=== PATIENT | male | born 1940 | race African-American/Black ===

== ENCOUNTER 2016-07-01 19:04 | Inpatient (IN) | payer MEDICARE ==
[~2016-07-01] VITALS: Ht 185.4 cm; Wt 78.6 kg
[~2016-07-01 19:04] MED LIST: AMLO2.5T45 PO; CARI350T27 PO; CARV6.2548 PO; HYDR-523 PO; LISI40TA4 PO; OMEP20TA80 PO; SIMV10TA6 PO; TRAM50TA3 PO
[2016-07-01 20:00] VITALS: BP 147/84
[2016-07-01] MEDS ORDERED: HYDROCODONE/ACETAMINOPHEN 5/325MG TABLET PO PRN ×3 (20:30→21:45)
[2016-07-01] MEDS ORDERED: ACET-2178 PO (21:24)
[2016-07-01] MEDS ORDERED: COR25 PO (21:24)
[2016-07-01] MEDS ORDERED: PULM25 NEB (21:24)
[2016-07-01] MEDS ORDERED: LOV40 SQ (21:24)
[2016-07-01] MEDS ORDERED: CARI350T27 PO (21:24)
[2016-07-01] MEDS ORDERED: LISI-653 PO (21:24)
[2016-07-01] MEDS ORDERED: AMLO5TAB4 PO (21:24)
[2016-07-01] MEDS ORDERED: DIPH25CA83 IV (21:24)
[2016-07-01] MEDS ORDERED: HYDR-523 PO (21:24)
[2016-07-01] MEDS ORDERED: AMLODIPINE 2.5MG TABLET PO SCH (21:30)
[2016-07-01] MEDS ORDERED: CARISOPRODOL 350 MG TABLET PO SCH ×2 (21:30→21:42)
[2016-07-01] MEDS ORDERED: DIPHENHYDRAMINE 25MG CAPSULE PO PRN (21:30)
[2016-07-01] MEDS ORDERED: HYDROCODONE/ACETAMINOPHEN 5/325MG TABLET PO SCH (21:30)
[2016-07-01] MEDS ORDERED: AMLODIPINE 5MG TABLET PO SCH (21:37)
[2016-07-01] MEDS ORDERED: ACETAMINOPHEN 650MG SUPP PR PRN (21:45)
[2016-07-01] MEDS ORDERED: NA PHOS,M-B/NA PHOS,DI-BA ENEMA 118ML PR PRN (21:45)
[2016-07-01] MEDS ORDERED: ACETAMINOPHEN 325MG TABLET PO PRN (21:45)
[2016-07-01] MEDS ORDERED: IPRATROPIUM/ALBUTEROL 0.5-3(2.5)MG/3ML NEB INH PRN (21:45)
[2016-07-01] MEDS ORDERED: ACETAMINOPHEN 650MG/20.3ML UDC GT PRN (21:45)
[2016-07-01] MEDS ORDERED: CLONIDINE 0.1MG TABLET PO PRN (21:45)
[2016-07-01] MEDS ORDERED: DIPHENHYDRAMINE 50MG/ML VIAL IV PRN (21:45)
[2016-07-01] MEDS ORDERED: DOCUSATE SODIUM 100MG CAPSULE PO PRN (21:45)
[2016-07-01] MEDS ORDERED: MAGNESIUM/ALUMINUM HYDROXIDE/SIMETHICONE 30ML UDC PO PRN (21:45)
[2016-07-01] MEDS ORDERED: ONDANSETRON HCL 4MG/2ML VIAL IV PRN (21:45)
[2016-07-01] MEDS: SODIUM CHLORIDE 0.9% INJ 3ML FLUSH IVF SCH (22:02)
[2016-07-02] MEDS: CEFAZOLIN 1000MG PREMIX 50 ML IV SCH ×5 (01:59→23:30)
[2016-07-02] MEDS: SODIUM CHLORIDE 0.9% INJ 3ML FLUSH IVF SCH ×4 (06:00→23:24)
[2016-07-02 08:00] VITALS: BP 131/89
[2016-07-02 08:28] LABS: BASOPHILS % 0.1 % (0.0-2.0); EOSINOPHILS % 0.3 % (0.0-5.0); HEMATOCRIT. 38.5 % (42.0-52.0); LYMPHOCYTES % 22.7 % (20.0-50.0); MEAN CORPUSCULAR HEMOGLOBIN 31.5 pg (28.0-32.0); MEAN CORPUSCULAR HGB CONC 33.6 g/dL (31.0-37.0); MEAN CORPUSCULAR VOLUME 93.8 fL (80.0-94.0); MONOCYTES % 10.5 % (2.0-8.0); NEUTROPHILS % 66.4 % (40.0-76.0); PLATELET 211 x1000/uL (130-400); RED BLOOD CELL COUNT 4.11 mill/uL (4.7-6.1); RED CELL DISTRIBUTION WIDTH 14.5 % (11.6-14.6); WHITE BLOOD COUNT 5.9 x1000/uL (4.5-11.0)
[2016-07-02 08:32] LABS: ALANINE AMINOTRANSFERASE 33 IU/L (13-61); ALBUMIN 3.2 g/dL (3.4-5.0); ANION GAP 11; CALCIUM 8.8 mg/dL (8.5-10.1); CARBON DIOXIDE 31 mEq/L (21-32); CHLORIDE 100 mEq/L (98-107); INDEX HEMOLYSI 1 (1-3); INDEX ICTERIC 1 (1-4); INDEX LIPEMIC 1 (1-3); PREALBUMIN 23.2 mg/dL (20.0-40.0); UREA NITROGEN BLOOD 19 mg/dL (7-21); eGFR > 60 mL/min (>60)
[2016-07-02] MEDS ORDERED: ENOXAPARIN 40MG/0.4ML SYR SUBCUT SCH (09:00)
[2016-07-02] MEDS ORDERED: CARVEDILOL 25MG TABLET PO SCH (09:00)
[2016-07-02] MEDS ORDERED: LISINOPRIL 40MG TABLET PO SCH (09:00)
[2016-07-02] MEDS ORDERED: LACTULOSE 20G/30ML UDC PO SCH (10:00)
[2016-07-02] MEDS: DOCUSATE SODIUM 100MG CAPSULE PO SCH ×2 (10:54→17:00)
[2016-07-02] MEDS: CARVEDILOL 25MG TABLET PO SCH ×2 (10:55→18:04)
[2016-07-02] MEDS: LISINOPRIL 40MG TABLET PO SCH ×2 (10:56→21:00)
[2016-07-02] MEDS: AMLODIPINE 5MG TABLET PO SCH ×2 (11:03→21:00)
[2016-07-02] MEDS: BUDESONIDE 0.5MG/2ML NEB HHN SCH ×2 (14:49→21:30)
[2016-07-02] MEDS: IPRATROPIUM/ALBUTEROL 0.5-3(2.5)MG/3ML NEB HHN SCH ×2 (14:49→21:22)
[2016-07-02] MEDS: TRAMADOL 50MG TABLET PO PRN (19:40)
[2016-07-02 19:46] VITALS: BP 106/64
[2016-07-02] MEDS: POLYETHYLENE GLYCOL 3350 (17GM) 1 DOSE PACK PO SCH (20:39)
[2016-07-03] MEDS: TRAMADOL 50MG TABLET PO PRN (03:49)
[2016-07-03] MEDS: SODIUM CHLORIDE 0.9% INJ 3ML FLUSH IVF SCH ×3 (06:00→22:53)
[2016-07-03] MEDS: CEFAZOLIN 1000MG PREMIX 50 ML IV SCH ×3 (06:33→22:49)
[2016-07-03 07:47] LABS: BASOPHILS % 0.2 % (0.0-2.0); EOSINOPHILS % 1.4 % (0.0-5.0); HEMATOCRIT. 37.5 % (42.0-52.0); HEMOGLOBIN. 12.9 g/dL (14.0-18.0); MEAN CORPUSCULAR HEMOGLOBIN 32.3 pg (28.0-32.0); MEAN CORPUSCULAR HGB CONC 34.4 g/dL (31.0-37.0); MEAN CORPUSCULAR VOLUME 93.9 fL (80.0-94.0); MEAN PLATELET VOLUME 6.8 fl (7.4-10.4); MONOCYTES % 9.7 % (2.0-8.0); NEUTROPHILS % 70.7 % (40.0-76.0); PLATELET 198 x1000/uL (130-400); RED BLOOD CELL COUNT 3.99 mill/uL (4.7-6.1); RED CELL DISTRIBUTION WIDTH 14.4 % (11.6-14.6); WHITE BLOOD COUNT 5.4 x1000/uL (4.5-11.0)
[2016-07-03 08:00] VITALS: BP 129/77
[2016-07-03 08:07] LABS: FOLIC ACID (FOLATE) SERUM 11.9 ng/mL (>5.38)
[2016-07-03 08:15] LABS: CHLORIDE 100 mEq/L (98-107); INDEX HEMOLYSI 1 (1-3); INDEX ICTERIC 2 (1-4); INDEX LIPEMIC 1 (1-3)
[2016-07-03 08:20] LABS: PROSTRATE SPECIFIC AG TOTAL 0.81 ng/mL (0.0-4.0)
[2016-07-03] MEDS: IPRATROPIUM/ALBUTEROL 0.5-3(2.5)MG/3ML NEB HHN SCH ×4 (08:31→21:47)
[2016-07-03] MEDS: BUDESONIDE 0.5MG/2ML NEB HHN SCH ×2 (08:31→21:46)
[2016-07-03 08:52] LABS: ANION GAP 15; CALCIUM 8.4 mg/dL (8.5-10.1); CARBON DIOXIDE 26 mEq/L (21-32); HDL CHOLESTEROL 55 mg/dL (40-59); IRON 115 ug/dL (50-175); LDL CHOLESTEROL 74 mg/dL (5-100); MAGNESIUM 2.2 mg/dL (1.8-2.4); PHOSPHORUS 3.5 mg/dL (2.5-4.9); THYROID STIMULATING HORMONE 0.52 uIU/mL (0.36-3.74); TOTAL IRON BINDING CAPACITY 278 ug/dL (250-450); TRIGLYCERIDE 170 mg/dL (0-150); UREA NITROGEN BLOOD 18 mg/dL (7-21); eGFR > 60 mL/min (>60)
[2016-07-03] MEDS: LACTULOSE 20G/30ML UDC PO SCH ×3 (09:00→17:00)
[2016-07-03] MEDS: CARVEDILOL 25MG TABLET PO SCH ×2 (09:02→17:56)
[2016-07-03] MEDS: DOCUSATE SODIUM 100MG CAPSULE PO SCH ×2 (09:02→17:56)
[2016-07-03] MEDS: LISINOPRIL 40MG TABLET PO SCH ×2 (09:02→21:00)
[2016-07-03] MEDS: AMLODIPINE 5MG TABLET PO SCH ×2 (09:03→21:22)
[2016-07-03] MEDS ORDERED: THROAT LOZENGES-BENZOCAINE/MENTH/CETYLPYRD CL LOZENGES MM PRN (14:30)
[2016-07-03] MEDS ORDERED: HALOPERIDOL LACTATE 5MG/ML VIAL IM PRN (15:15)
[2016-07-03 16:45] LABS: AMMONIA 11 uMol/L (<32); INDEX HEMOLYSI 1 (1-3)
[2016-07-03 20:41] VITALS: BP 117/73
[2016-07-03 21:15] LABS: CLARITY URINE CLEAR (CLEAR); COLOR URINE YELLOW (YELLOW); GLUCOSE URINE NEGATIVE (NEGATIVE); KETONES URINE NEGATIVE (NEGATIVE); LEUKOCYTE ESTERASE URINE NEGATIVE (NEGATIVE); NITRITE URINE NEGATIVE (NEGATIVE); OCCULT BLOOD URINE NEGATIVE (NEGATIVE); PROTEIN URINE NEGATIVE (NEGATIVE); SPECIFIC GRAVITY URINE 1.014 (1.005-1.030)
[2016-07-03] MEDS: POLYETHYLENE GLYCOL 3350 (17GM) 1 DOSE PACK PO SCH (21:22)
[2016-07-04] MEDS: IPRATROPIUM/ALBUTEROL 0.5-3(2.5)MG/3ML NEB HHN SCH ×5 (02:40→21:30)
[2016-07-04] MEDS: CEFAZOLIN 1000MG PREMIX 50 ML IV SCH ×2 (05:58→14:45)
[2016-07-04] MEDS: SODIUM CHLORIDE 0.9% INJ 3ML FLUSH IVF SCH ×2 (06:10→14:45)
[2016-07-04] MEDS: BUDESONIDE 0.5MG/2ML NEB HHN SCH ×2 (07:36→21:30)
[2016-07-04 08:00] VITALS: BP 133/78
[2016-07-04] MEDS: DOCUSATE SODIUM 100MG CAPSULE PO SCH ×2 (09:17→17:00)
[2016-07-04] MEDS: AMLODIPINE 5MG TABLET PO SCH ×2 (09:18→21:00)
[2016-07-04] MEDS: CARVEDILOL 25MG TABLET PO SCH ×2 (09:18→17:00)
[2016-07-04] MEDS: LISINOPRIL 40MG TABLET PO SCH ×2 (09:18→21:00)
[2016-07-04] MEDS: ACETAMINOPHEN 325MG TABLET PO PRN (10:44)
[2016-07-04 20:00] VITALS: BP 114/63
[2016-07-04] MEDS: POLYETHYLENE GLYCOL 3350 (17GM) 1 DOSE PACK PO SCH (21:00)
[2016-07-04] MEDS: TRAMADOL 50MG TABLET PO PRN (21:16)
[2016-07-05] MEDS: CEFAZOLIN 1000MG PREMIX 50 ML IV SCH ×4 (00:08→22:14)
[2016-07-05] MEDS: SODIUM CHLORIDE 0.9% INJ 3ML FLUSH IVF SCH ×4 (00:08→22:13)
[2016-07-05] MEDS: IPRATROPIUM/ALBUTEROL 0.5-3(2.5)MG/3ML NEB HHN SCH ×3 (02:00→21:21)
[2016-07-05] MEDS: BUDESONIDE 0.5MG/2ML NEB HHN SCH ×3 (02:00→21:21)
[2016-07-05] MEDS: ACETAMINOPHEN 325MG TABLET PO PRN ×2 (02:23→09:08)
[2016-07-05 08:00] VITALS: BP 94/58
[2016-07-05 08:45] VITALS: BP 94/58
[2016-07-05] MEDS: LISINOPRIL 40MG TABLET PO SCH ×2 (09:00→21:00)
[2016-07-05] MEDS: MEGESTROL ACETATE 400 MG/10 ML UDC PO SCH ×2 (09:00→09:05)
[2016-07-05] MEDS: CARVEDILOL 25MG TABLET PO SCH ×2 (09:00→16:42)
[2016-07-05] MEDS: AMLODIPINE 5MG TABLET PO SCH ×2 (09:00→22:13)
[2016-07-05] MEDS: DOCUSATE SODIUM 100MG CAPSULE PO SCH ×2 (09:05→16:43)
[2016-07-05 16:00] VITALS: BP 125/73
[2016-07-05 20:00] VITALS: BP 124/86
[2016-07-05] MEDS: POLYETHYLENE GLYCOL 3350 (17GM) 1 DOSE PACK PO SCH (21:00)
[2016-07-06] MEDS: SODIUM CHLORIDE 0.9% INJ 3ML FLUSH IVF SCH ×3 (05:34→22:00)
[2016-07-06] MEDS: TRAMADOL 50MG TABLET PO PRN (05:40)
[2016-07-06 06:59] LABS: BASOPHILS % 0.2 % (0.0-2.0); HEMATOCRIT. 35.3 % (42.0-52.0); HEMOGLOBIN. 11.8 g/dL (14.0-18.0); LYMPHOCYTES % 27.4 % (20.0-50.0); MEAN CORPUSCULAR HEMOGLOBIN 31.4 pg (28.0-32.0); MEAN CORPUSCULAR HGB CONC 33.4 g/dL (31.0-37.0); MONOCYTES % 10.5 % (2.0-8.0); NEUTROPHILS % 60.9 % (40.0-76.0); PLATELET 209 x1000/uL (130-400); RED BLOOD CELL COUNT 3.75 mill/uL (4.7-6.1); RED CELL DISTRIBUTION WIDTH 14.2 % (11.6-14.6); WHITE BLOOD COUNT 5.2 x1000/uL (4.5-11.0)
[2016-07-06] MEDS: IPRATROPIUM/ALBUTEROL 0.5-3(2.5)MG/3ML NEB HHN SCH ×2 (07:46→20:40)
[2016-07-06 08:00] VITALS: BP 123/75
[2016-07-06] MEDS: MEGESTROL ACETATE 400 MG/10 ML UDC PO SCH (08:21)
[2016-07-06] MEDS: LISINOPRIL 40MG TABLET PO SCH ×2 (08:21→21:00)
[2016-07-06] MEDS: DOCUSATE SODIUM 100MG CAPSULE PO SCH ×2 (08:21→17:00)
[2016-07-06] MEDS: AMLODIPINE 5MG TABLET PO SCH ×2 (08:22→21:00)
[2016-07-06] MEDS: CARVEDILOL 25MG TABLET PO SCH ×2 (08:22→17:21)
[2016-07-06 17:30] LABS: BASOPHILS % 0.4 % (0.0-2.0); EOSINOPHILS % 0.6 % (0.0-5.0); HEMATOCRIT. 36.6 % (42.0-52.0); HEMOGLOBIN. 12.3 g/dL (14.0-18.0); LYMPHOCYTES % 23.3 % (20.0-50.0); MEAN CORPUSCULAR HEMOGLOBIN 31.6 pg (28.0-32.0); MEAN CORPUSCULAR HGB CONC 33.7 g/dL (31.0-37.0); MEAN CORPUSCULAR VOLUME 93.7 fL (80.0-94.0); MEAN PLATELET VOLUME 6.7 fl (7.4-10.4); MONOCYTES % 8.4 % (2.0-8.0); NEUTROPHILS % 67.3 % (40.0-76.0); PLATELET 222 x1000/uL (130-400); RED BLOOD CELL COUNT 3.91 mill/uL (4.7-6.1); RED CELL DISTRIBUTION WIDTH 14.2 % (11.6-14.6); WHITE BLOOD COUNT 7.8 x1000/uL (4.5-11.0)
[2016-07-06 17:42] LABS: ANION GAP 11; CALCIUM 8.9 mg/dL (8.5-10.1); CARBON DIOXIDE 31 mEq/L (21-32); CHLORIDE 99 mEq/L (98-107); INDEX HEMOLYSI 1 (1-3); INDEX ICTERIC 1 (1-4); INDEX LIPEMIC 1 (1-3); UREA NITROGEN BLOOD 14 mg/dL (7-21); eGFR > 60 mL/min (>60)
[2016-07-06 20:00] VITALS: BP 117/72
[2016-07-06] MEDS: ACETAMINOPHEN 325MG TABLET PO PRN (20:37)
[2016-07-06] MEDS: BUDESONIDE 0.5MG/2ML NEB HHN SCH (20:40)
[2016-07-06] MEDS: POLYETHYLENE GLYCOL 3350 (17GM) 1 DOSE PACK PO SCH (21:00)
[2016-07-07] MEDS: IPRATROPIUM/ALBUTEROL 0.5-3(2.5)MG/3ML NEB HHN SCH ×2 (00:50→08:00)
[2016-07-07] MEDS: SODIUM CHLORIDE 0.9% INJ 3ML FLUSH IVF SCH ×2 (05:39→14:00)
[2016-07-07 06:27] LABS: BASOPHILS % 0.2 % (0.0-2.0); EOSINOPHILS % 0.8 % (0.0-5.0); HEMOGLOBIN. 11.8 g/dL (14.0-18.0); LYMPHOCYTES % 21.4 % (20.0-50.0); MEAN CORPUSCULAR HEMOGLOBIN 31.7 pg (28.0-32.0); MEAN CORPUSCULAR HGB CONC 33.8 g/dL (31.0-37.0); MEAN CORPUSCULAR VOLUME 93.6 fL (80.0-94.0); MEAN PLATELET VOLUME 6.9 fl (7.4-10.4); MONOCYTES % 9.2 % (2.0-8.0); NEUTROPHILS % 68.4 % (40.0-76.0); PLATELET 218 x1000/uL (130-400); RED BLOOD CELL COUNT 3.73 mill/uL (4.7-6.1); RED CELL DISTRIBUTION WIDTH 14.1 % (11.6-14.6); WHITE BLOOD COUNT 6.4 x1000/uL (4.5-11.0)
[2016-07-07 07:25] LABS: ANION GAP 13; CALCIUM 8.8 mg/dL (8.5-10.1); CARBON DIOXIDE 25 mEq/L (21-32); CHLORIDE 104 mEq/L (98-107); INDEX HEMOLYSI 1 (1-3); INDEX ICTERIC 1 (1-4); INDEX LIPEMIC 1 (1-3); UREA NITROGEN BLOOD 15 mg/dL (7-21); eGFR > 60 mL/min (>60)
[2016-07-07 08:00] VITALS: BP 139/75
[2016-07-07] MEDS: BUDESONIDE 0.5MG/2ML NEB HHN SCH (08:00)
[2016-07-07] MEDS: DOCUSATE SODIUM 100MG CAPSULE PO SCH (08:14)
[2016-07-07] MEDS: CARVEDILOL 25MG TABLET PO SCH (08:14)
[2016-07-07] MEDS: AMLODIPINE 5MG TABLET PO SCH (08:14)
[2016-07-07] MEDS: LISINOPRIL 40MG TABLET PO SCH (08:14)
[2016-07-07] MEDS: ACETAMINOPHEN 325MG TABLET PO PRN (08:15)
[2016-07-07 12:06] VITALS: BP 139/75
[2016-07-08 09:06] LABS: 25-HYDROXY VITAMIN D3 21 ng/mL (.)
== END 2016-07-07 17:00 | disposition home or self-care (01) | DRG 551 ==
PROVIDERS: ADMIT Physical Medicine & Rehabilitation Spinal Cord Injury Medicine; ATTEND Internal Medicine Nephrology
DX: M48.06 Spinal stenosis, lumbar region (principal); G82.50 Quadriplegia, unspecified; G93.40 Encephalopathy, unspecified; E44.0 Moderate protein-calorie malnutrition; M48.02 Spinal stenosis, cervical region; M47.9 Spondylosis, unspecified; Z96.649 Presence of unspecified artificial hip joint; I10 Essential (primary) hypertension; D64.9 Anemia, unspecified; R26.9 Unspecified abnormalities of gait and mobility; E78.5 Hyperlipidemia, unspecified; M48.04 Spinal stenosis, thoracic region; W19.XXXA Unspecified fall, initial encounter; R53.81 Other malaise; R13.10 Dysphagia, unspecified; J44.9 Chronic obstructive pulmonary disease, unspecified; K59.00 Constipation, unspecified; Z68.22 Body mass index [BMI] 22.0-22.9, adult; Z87.81 Personal history of (healed) traumatic fracture; Z88.2 Allergy status to sulfonamides; Z98.1 Arthrodesis status
CPT/HCPCS: 36415; 70551; 71020; 80048; 80053; 80061; 81003; 82140; 82306; 82607; 82728; 82746; 83036; 83540; 83550; 83735; 84100; 84134; 84153; 84443; 84630; 85025; 87086; 92523; 92610; 93970; 94640; 94664; 97110; 97112; 97116; 97162; 97166; 97530; 97532; 97535; J0690; J1650; J7040; J7620; J7626; L0172; Q0163

== ENCOUNTER → 2016-08-25 | Outpatient (CLI) | payer MEDICARE, MEDICAID ==
[~2016-08-25] MED LIST changes: +ACET-2178 PO; +AMLO5TAB4 PO; -CARV6.2548 PO; +COR25 PO; +DIPH25CA83 IV; -LISI40TA4 PO; +LOV40 SQ; +PULM25 NEB
== END | disposition home or self-care (01) ==
LOC: RAD 10:57
PROVIDERS: ATTEND Neurological Surgery
DX: M47.812 Spondylosis without myelopathy or radiculopathy, cervical region (principal); J98.11 Atelectasis
CPT/HCPCS: 71010; 72052

== ENCOUNTER → 2016-09-19 | Outpatient (CLI) | payer MEDICARE, MEDICAID ==
[~2016-09-19] MED LIST changes: +IOHEXOL-300 100 ML BOTTLE ONE; +OMEP20TA2 PO; -OMEP20TA80 PO; +SODIUM CHLORIDE 0.9% 10ML VIAL ONE
== END | disposition home or self-care (01) ==
LOC: CT 09:31
PROVIDERS: ATTEND Internal Medicine Nephrology
DX: M25.512 Pain in left shoulder (principal); R06.02 Shortness of breath; R05 Cough; Z98.1 Arthrodesis status
CPT/HCPCS: 70491; 71260; 73030; A4216; Q9967

== ENCOUNTER → 2016-12-09 | Outpatient (CLI) | payer MEDICARE, MEDICAID ==
[~2016-12-09] MED LIST changes: -IOHEXOL-300 100 ML BOTTLE ONE; -SODIUM CHLORIDE 0.9% 10ML VIAL ONE
== END | disposition home or self-care (01) ==
LOC: RAD 12:10
PROVIDERS: ATTEND Neurological Surgery
DX: M43.22 Fusion of spine, cervical region (principal)
CPT/HCPCS: 72040

== ENCOUNTER 2018-01-09 13:43 | Inpatient (IN) | payer MEDICARE, MEDICAID ==
[~2018-01-09] VITALS: Ht 185.4 cm; Wt 85.8 kg
[2018-01-09] MEDS ORDERED: ASPIRIN 81MG TABLET PO ONE (14:45)
[2018-01-09 15:24] LABS: BASOPHILS % 0.4 % (0.0-2.0); HEMATOCRIT. 36.3 % (42.0-52.0); HEMOGLOBIN. 12.4 g/dL (14.0-18.0); LYMPHOCYTES % 38.5 % (20.0-50.0); MEAN CORPUSCULAR HEMOGLOBIN 31.9 pg (28.0-32.0); MEAN CORPUSCULAR VOLUME 92.8 fL (80.0-94.0); MEAN PLATELET VOLUME 7.4 fl (7.4-10.4); MONOCYTES % 11.7 % (2.0-8.0); NEUTROPHILS % 48.4 % (40.0-76.0); PLATELET 164 x1000/uL (130-400); RED BLOOD CELL COUNT 3.91 mill/uL (4.7-6.1); RED CELL DISTRIBUTION WIDTH 14.4 % (11.6-14.6)
[2018-01-09 15:33] LABS: CHLORIDE 109 mEq/L (98-107)
[2018-01-09 15:36] LABS: D-DIMER 0.89 mg/L FEU (<0.50); INR 1.2; PARTIAL THROMBOPLASTIN TIME 29.7 sec (23.4-31.0); PROTHROMBIN TIME 11.6 sec (9.1-11.1)
[2018-01-09] MEDS ORDERED: POTASSIUM CHLORIDE 20MEQ TABLET SR PO ONE (16:30)
[2018-01-09 21:20] VITALS: BP 143/89
[2018-01-09 22:00] VITALS: BP 143/89
[2018-01-09] MEDS ORDERED: HYDROCODONE/ACETAMINOPHEN 5/325MG TABLET PO PRN (22:21)
[2018-01-09] MEDS ORDERED: ACETAMINOPHEN 650MG/20.3ML UDC GT PRN (23:30)
[2018-01-09] MEDS ORDERED: LORAZEPAM 2MG/ML CPJ IV PRN (23:30)
[2018-01-09] MEDS ORDERED: ENOXAPARIN 40MG/0.4ML SYR SUBCUT SCH (23:30)
[2018-01-09] MEDS ORDERED: CLONIDINE 0.1MG TABLET PO PRN (23:30)
[2018-01-10] VITALS (15 sets, daily range): BP systolic 113–143; BP diastolic 69–97
[2018-01-10 00:02] LABS: CREATINE KINASE 193 IU/L (39-308); CREATINE KINASE MB FRACTION 1.6 ng/mL (0.5-3.6)
[2018-01-10] MEDS: ENOXAPARIN 40MG/0.4ML SYR SUBCUT SCH (09:00)
[2018-01-10] MEDS ORDERED: SODIUM CHLORIDE 0.45% 1,000 ML IV SCH (09:15)
[2018-01-10] MEDS ORDERED: LIDOCAINE HCL 1% 20ML VIAL (Pyxis) INJ ONE (10:11)
[2018-01-10] MEDS ORDERED: IODIXANOL 320MG/ML 100 ML BOTTLE IV ONE (10:11)
[2018-01-10 10:12] LABS: CREATINE KINASE 211 IU/L (39-308); CREATINE KINASE MB FRACTION 1.9 ng/mL (0.5-3.6)
[2018-01-10] MEDS ORDERED: MIDAZOLAM HCL 2 MG/2 ML VIAL ONE (10:46)
[2018-01-10] MEDS ORDERED: FENTANYL CITRATE/PF 50MCG/ML 2ML VIAL ONE (10:47)
[2018-01-10] MEDS ORDERED: ATROPINE SULFATE 1MG/10ML SYR IV PRN (11:15)
[2018-01-10] MEDS ORDERED: ONDANSETRON HCL 4MG/2ML INJ IV PRN (11:15)
[2018-01-10] MEDS ORDERED: ACETAMINOPHEN 325MG TABLET PO PRN (11:15)
[2018-01-10] MEDS ORDERED: CLON-457 MT (15:31)
[2018-01-10] MEDS ORDERED: LISI40TA4 MT (15:31)
[2018-01-10] MEDS ORDERED: DEXL60CA3 MT (15:31)
[2018-01-10] MEDS ORDERED: FOLI0.8T42 MT (15:31)
[2018-01-10] MEDS ORDERED: HEPARIN SODIUM 1,000 UNIT/1ML VIAL IV ONE (16:05)
[2018-01-10] MEDS ORDERED: NICARDIPINE 100MCG/ML 10ML VIAL (CATH LAB) IV ONE (16:06)
[2018-01-10] MEDS ORDERED: NITROGLYCERIN 50MCG/ML 10ML VIAL (CATH LAB) IV ONE (16:06)
[2018-01-10 21:24] LABS: CLARITY URINE CLEAR (CLEAR); COLOR URINE YELLOW (YELLOW); KETONES URINE NEGATIVE (NEGATIVE); LEUKOCYTE ESTERASE URINE NEGATIVE (NEGATIVE); NITRITE URINE NEGATIVE (NEGATIVE); OCCULT BLOOD URINE NEGATIVE (NEGATIVE); PROTEIN URINE NEGATIVE (NEGATIVE); SPECIFIC GRAVITY URINE 1.026 (1.005-1.030); UROBILINOGEN URINE 0.2 E.U./dL (0.2-1.0)
[2018-01-11] VITALS (8 sets, daily range): BP systolic 107–152; BP diastolic 51–82
[2018-01-11 06:38] LABS: BASOPHILS % 0.6 % (0.0-2.0); EOSINOPHILS % 1.4 % (0.0-5.0); HEMATOCRIT. 36.3 % (42.0-52.0); HEMOGLOBIN. 12.5 g/dL (14.0-18.0); LYMPHOCYTES % 38.6 % (20.0-50.0); MEAN CORPUSCULAR HEMOGLOBIN 31.8 pg (28.0-32.0); MEAN CORPUSCULAR VOLUME 92.1 fL (80.0-94.0); MEAN PLATELET VOLUME 7.5 fl (7.4-10.4); MONOCYTES % 11.4 % (2.0-8.0); PLATELET 168 x1000/uL (130-400); RED BLOOD CELL COUNT 3.94 mill/uL (4.7-6.1); RED CELL DISTRIBUTION WIDTH 14.3 % (11.6-14.6)
[2018-01-11 06:55] LABS: CHLORIDE 108 mEq/L (98-107)
[2018-01-11 07:22] LABS: PHOSPHORUS 3.7 mg/dL (2.5-4.9)
[2018-01-11] MEDS: ENOXAPARIN 40MG/0.4ML SYR SUBCUT SCH (08:50)
== END 2018-01-11 12:35 | disposition home or self-care (01) | DRG 287 ==
LOC: ER 13:43 → 7WST 17:55 → EDBEDREQ 17:55 → EDBEDREQTM 17:55 → ENRESERV 19:45 → EDBEDREQ 21:02 → 3WST 01-10 11:27
PROVIDERS: ADMIT Internal Medicine Nephrology; ATTEND Internal Medicine Nephrology
PROC: 4A023N7 Measurement of Cardiac Sampling and Pressure, Left Heart, Percutaneous Approach (ICD-10-PCS; principal; 2018-01-10)
PROC: B2151ZZ Fluoroscopy of Left Heart using Low Osmolar Contrast (ICD-10-PCS; 2018-01-10)
PROC: B2111ZZ Fluoroscopy of Multiple Coronary Arteries using Low Osmolar Contrast (ICD-10-PCS; 2018-01-10)
DX: I25.110 Atherosclerotic heart disease of native coronary artery with unstable angina pectoris (principal); E78.00 Pure hypercholesterolemia, unspecified; E78.5 Hyperlipidemia, unspecified; F41.9 Anxiety disorder, unspecified; I10 Essential (primary) hypertension; I49.5 Sick sinus syndrome; J44.9 Chronic obstructive pulmonary disease, unspecified; I25.2 Old myocardial infarction; Z88.2 Allergy status to sulfonamides; Z79.899 Other long term (current) drug therapy; Z87.891 Personal history of nicotine dependence
CPT/HCPCS: 36415; 71045; 71275; 80048; 82550; 82553; 83735; 83880; 84100; 84484; 85379; 93005; 93306; 93458; 99285; C1769; C1887; C1893; J1644; J1650; J2250; J3010; J3490; Q9967

== ENCOUNTER → 2018-06-19 | Outpatient (CLI) | payer MEDICARE, MEDICAID ==
[~2018-06-19] MED LIST changes: -ACET-2178 PO; -AMLO2.5T45 PO; -CARI350T27 PO; +CLON-457 MT; +DEXL60CA3 MT; -DIPH25CA83 IV; +FOLI0.8T42 MT; -HYDR-523 PO; +LISI40TA4 MT; -LOV40 SQ; -PULM25 NEB; -TRAM50TA3 PO
[2018-06-19 12:29] LABS: CLARITY URINE CLEAR (CLEAR); COLOR URINE YELLOW (YELLOW); KETONES URINE NEGATIVE (NEGATIVE); LEUKOCYTE ESTERASE URINE NEGATIVE (NEGATIVE); NITRITE URINE NEGATIVE (NEGATIVE); OCCULT BLOOD URINE NEGATIVE (NEGATIVE); PH URINE 5.5 (4.5-8.0); PROTEIN URINE NEGATIVE (NEGATIVE); SPECIFIC GRAVITY URINE 1.017 (1.005-1.030)
[2018-06-19 12:31] LABS: BASOPHILS % 0.7 % (0.0-2.0); EOSINOPHILS % 1.6 % (0.0-5.0); HEMATOCRIT. 36.9 % (42.0-52.0); HEMOGLOBIN. 12.4 g/dL (14.0-18.0); LYMPHOCYTES % 34.6 % (20.0-50.0); MEAN CORPUSCULAR HEMOGLOBIN 31.4 pg (28.0-32.0); MEAN CORPUSCULAR VOLUME 93.2 fL (80.0-94.0); MEAN PLATELET VOLUME 7.4 fl (7.4-10.4); MONOCYTES % 14.4 % (2.0-8.0); NEUTROPHILS % 48.7 % (40.0-76.0); PLATELET 148 x1000/uL (130-400); RED BLOOD CELL COUNT 3.96 mill/uL (4.7-6.1); RED CELL DISTRIBUTION WIDTH 13.4 % (11.6-14.6)
[2018-06-19 12:46] LABS: CHLORIDE 108 mEq/L (98-107)
== END | disposition home or self-care (01) ==
LOC: RAD 11:47
PROVIDERS: ATTEND Internal Medicine Nephrology
DX: M17.12 Unilateral primary osteoarthritis, left knee (principal); K21.9 Gastro-esophageal reflux disease without esophagitis; I10 Essential (primary) hypertension
CPT/HCPCS: 36415; 73562; 82306; 83036

== ENCOUNTER → 2018-07-05 | Outpatient (CLI) | payer MEDICARE, MEDICAID ==
[2018-07-05 15:12] LABS: VITAMIN B12 SERUM 420 pg/mL (211-911)
== END | disposition home or self-care (01) ==
LOC: LAB 13:34
PROVIDERS: ATTEND Psychiatry & Neurology Neurology
DX: G44.209 Tension-type headache, unspecified, not intractable (principal); I10 Essential (primary) hypertension
CPT/HCPCS: 36415; 82607; 84443

== ENCOUNTER → 2018-07-18 | Outpatient (CLI) | payer MEDICARE, MEDICAID | END | disposition home or self-care (01) | LOC: CARD 11:22 | PROVIDERS: ATTEND Psychiatry & Neurology Neurology | DX: G44.209 Tension-type headache, unspecified, not intractable (principal); I10 Essential (primary) hypertension ==

== ENCOUNTER 2021-04-20 15:19 | Emergency (ER) | payer MEDICARE, OTHER ==
[~2021-04-20] VITALS: Ht 172.7 cm; Wt 77.0 kg
[~2021-04-20 15:19] MED LIST changes: +LISI40TA13 MT; -LISI40TA4 MT; -SIMV10TA6 PO; +SIMV10TA97 PO
[2021-04-20 15:33] VITALS: BP 153/77
[2021-04-20] MEDS ORDERED: PRED10TA MT (15:48)
[2021-04-20] MEDS ORDERED: VALA100044 MT (15:48)
== END 2021-04-20 15:57 | disposition home or self-care (01) ==
LOC: ER 15:19
DX: B02.9 Zoster without complications (principal); I10 Essential (primary) hypertension; Z88.2 Allergy status to sulfonamides; Z79.899 Other long term (current) drug therapy; Z98.890 Other specified postprocedural states; E78.00 Pure hypercholesterolemia, unspecified
CPT/HCPCS: 99281; 99283

== ENCOUNTER → 2021-12-14 | Outpatient (CLI) | payer MEDICARE, MEDICAID ==
[~2021-12-14] MED LIST changes: -OMEP20TA2 PO; +OMEP20TA23 PO; +PRED10TA MT; +VALA100044 MT
== END | disposition home or self-care (01) ==
LOC: MRI 14:24
PROVIDERS: ATTEND Internal Medicine Nephrology
DX: M47.816 Spondylosis without myelopathy or radiculopathy, lumbar region (principal); M48.05 Spinal stenosis, thoracolumbar region; M51.26 Other intervertebral disc displacement, lumbar region; M25.78 Osteophyte, vertebrae; M24.28 Disorder of ligament, vertebrae
CPT/HCPCS: 72146; 72148

== ENCOUNTER 2022-07-17 09:52 | Inpatient (IN) | payer MEDICARE, MEDICAID ==
[~2022-07-17] VITALS: Ht 185.4 cm; Wt 85.3 kg
[2022-07-17 12:34] LABS: BASOPHILS % 0.7 % (0.0-2.0); EOSINOPHILS % 2.7 % (0.0-5.0); HEMATOCRIT. 30.6 % (42.0-52.0); HEMOGLOBIN. 10.6 g/dL (14.0-18.0); LYMPHOCYTES % 30.7 % (20.0-50.0); MEAN CORPUSCULAR HEMOGLOBIN 32.5 pg (28.0-32.0); MEAN CORPUSCULAR VOLUME 93.4 fL (80.0-94.0); MEAN PLATELET VOLUME 7.3 fl (7.4-10.4); MONOCYTES % 9.2 % (2.0-8.0); NEUTROPHILS % 56.7 % (40.0-76.0); PLATELET 167 x1000/uL (130-400); RED BLOOD CELL COUNT 3.28 mill/uL (4.7-6.1); RED CELL DISTRIBUTION WIDTH 13.5 % (11.6-14.6)
[2022-07-17 12:41] LABS: CHLORIDE 108 mEq/L (98-107)
[2022-07-17 13:01] LABS: T4 FREE 0.89 ng/dL (0.76-1.46)
[2022-07-17 13:05] LABS: T4 FREE 0.88 ng/dL (0.76-1.46)
[2022-07-17 13:57] LABS: CLARITY URINE CLEAR (CLEAR); COLOR URINE YELLOW (YELLOW); KETONES URINE NEGATIVE (NEGATIVE); LEUKOCYTE ESTERASE URINE NEGATIVE (NEGATIVE); NITRITE URINE NEGATIVE (NEGATIVE); OCCULT BLOOD URINE NEGATIVE (NEGATIVE); PH URINE 5.5 (4.5-8.0); PROTEIN URINE NEGATIVE (NEGATIVE); SPECIFIC GRAVITY URINE 1.006 (1.005-1.030); UROBILINOGEN URINE 0.2 E.U./dL (0.2-1.0)
[2022-07-17 14:36] LABS: DIGOXIN 0.1 ng/mL (0.9-2.0)
[2022-07-17] MEDS: HYDRALAZINE HCL 25MG TABLET PO SCH ×2 (15:28→21:05)
[2022-07-17] MEDS ORDERED: MORPHINE SULFATE 2 MG/ML CPJ (NOT FOR IM USE) IV PRN (19:15)
[2022-07-17] MEDS ORDERED: NALOXONE HCL 0.4MG/ML VIAL IV PRN (19:15)
[2022-07-17 20:00] VITALS: BP 182/76
[2022-07-17 20:08] VITALS: BP 176/80
[2022-07-17] MEDS ORDERED: ATEN50TA MT (20:38)
[2022-07-17] MEDS ORDERED: TAMS-11 MT (20:38)
[2022-07-17] MEDS ORDERED: SIMV-43 MT (20:38)
[2022-07-17] MEDS ORDERED: IBUP-2030 MT (20:38)
[2022-07-17] MEDS ORDERED: SERT-422 MT (20:38)
[2022-07-17] MEDS ORDERED: DEXL60CA3 MT (20:38)
[2022-07-17] MEDS ORDERED: VERA240C2 MT (20:38)
[2022-07-17] MEDS ORDERED: DICL100G31 TP (20:38)
[2022-07-17] MEDS ORDERED: LISI20TA31 PO (20:38)
[2022-07-17] MEDS ORDERED: CLONIDINE 0.1MG TABLET PO PRN (20:45)
[2022-07-17] MEDS: AMLODIPINE 10MG TABLET PO SCH (20:45)
[2022-07-17] MEDS ORDERED: ONDANSETRON HCL 4MG/2ML INJ IV PRN (20:45)
[2022-07-17] MEDS: METOPROLOL TARTRATE 25MG TABLET PO SCH (20:46)
[2022-07-17] MEDS: MULTIVITAMINS,THER W-MINERALS TABLET PO SCH (21:05)
[2022-07-17] MEDS: HYDROCODONE/ACETAMINOPHEN 5/325MG TABLET PO PRN (21:06)
[2022-07-17] MEDS ORDERED: HYDRALAZINE HCL 25MG TABLET PO NR ×2 (22:39→23:15)
[2022-07-17] MEDS: ATORVASTATIN CALCIUM 10MG TABLET PO SCH (23:14)
[2022-07-17] MEDS ORDERED: HYDRALAZINE 20MG/ML VIAL IV PRN (23:15)
[2022-07-18] VITALS (8 sets, daily range): BP systolic 120–172; BP diastolic 56–82
[2022-07-18] MEDS: HYDRALAZINE HCL 100MG TABLET PO SCH ×3 (05:30→21:39)
[2022-07-18 05:36] LABS: BASOPHILS % 0.2 % (0.0-2.0); EOSINOPHILS % 1.6 % (0.0-5.0); HEMATOCRIT. 34.4 % (42.0-52.0); HEMOGLOBIN. 11.9 g/dL (14.0-18.0); LYMPHOCYTES % 40.1 % (20.0-50.0); MEAN CORPUSCULAR HEMOGLOBIN 32.1 pg (28.0-32.0); MEAN CORPUSCULAR VOLUME 92.8 fL (80.0-94.0); MEAN PLATELET VOLUME 7.6 fl (7.4-10.4); MONOCYTES % 8.6 % (2.0-8.0); NEUTROPHILS % 49.5 % (40.0-76.0); PLATELET 183 x1000/uL (130-400); RED BLOOD CELL COUNT 3.71 mill/uL (4.7-6.1); RED CELL DISTRIBUTION WIDTH 13.6 % (11.6-14.6)
[2022-07-18 05:59] LABS: CHLORIDE 108 mEq/L (98-107)
[2022-07-18] MEDS ORDERED: HYDRALAZINE HCL 50MG TABLET PO SCH (06:00)
[2022-07-18] MEDS: AMLODIPINE 10MG TABLET PO SCH (09:00)
[2022-07-18] MEDS: METOPROLOL TARTRATE 25MG TABLET PO SCH (09:00)
[2022-07-18] MEDS: LISINOPRIL 20MG TABLET PO SCH ×2 (09:33→18:30)
[2022-07-18] MEDS: MULTIVITAMINS,THER W-MINERALS TABLET PO SCH (09:33)
[2022-07-18] MEDS: ASPIRIN 81MG EC TABLET PO SCH (09:34)
[2022-07-18] MEDS: HYDROCODONE/ACETAMINOPHEN 5/325MG TABLET PO PRN (09:34)
[2022-07-18] MEDS ORDERED: POTASSIUM CHLORIDE 20MEQ/PACKET PO NR (10:30)
[2022-07-18] MEDS: ISOSORBIDE MONONITRATE 30MG TABLET SR 24HR PO SCH (12:38)
[2022-07-18] MEDS ORDERED: AMLODIPINE 5MG TABLET PO SCH (17:00)
[2022-07-18] MEDS: ATORVASTATIN CALCIUM 10MG TABLET PO SCH (21:39)
[2022-07-18] MEDS: POTASSIUM CHLORIDE 20MEQ TABLET SR PO SCH (22:22)
[2022-07-19] VITALS: BP 153/71
[2022-07-19 04:00] VITALS: BP 116/54
[2022-07-19 06:26] LABS: BASOPHILS % 0.2 % (0.0-2.0); EOSINOPHILS % 0.4 % (0.0-5.0); HEMATOCRIT. 29.4 % (42.0-52.0); HEMOGLOBIN. 10.5 g/dL (14.0-18.0); LYMPHOCYTES % 19.5 % (20.0-50.0); MEAN CORPUSCULAR VOLUME 92.7 fL (80.0-94.0); MEAN PLATELET VOLUME 7.8 fl (7.4-10.4); MONOCYTES % 9.1 % (2.0-8.0); NEUTROPHILS % 70.8 % (40.0-76.0); PLATELET 166 x1000/uL (130-400); RED BLOOD CELL COUNT 3.17 mill/uL (4.7-6.1); RED CELL DISTRIBUTION WIDTH 13.6 % (11.6-14.6)
[2022-07-19 08:00] VITALS: BP 135/77
[2022-07-19 08:21] LABS: CHLORIDE 106 mEq/L (98-107)
[2022-07-19] MEDS: ISOSORBIDE MONONITRATE 30MG TABLET SR 24HR PO SCH (08:48)
[2022-07-19] MEDS: MULTIVITAMINS,THER W-MINERALS TABLET PO SCH (08:48)
[2022-07-19] MEDS: POTASSIUM CHLORIDE 20MEQ TABLET SR PO SCH (08:48)
[2022-07-19] MEDS: ASPIRIN 81MG EC TABLET PO SCH (08:49)
[2022-07-19] MEDS: LISINOPRIL 20MG TABLET PO SCH (08:49)
[2022-07-19] MEDS: HYDROCODONE/ACETAMINOPHEN 5/325MG TABLET PO PRN (10:54)
[2022-07-19] MEDS ORDERED: MAGNESIUM OXIDE 400MG TABLET PO SCH (11:45)
[2022-07-19 12:00] VITALS: BP 135/74
[2022-07-19] MEDS ORDERED: MAGNESIUM 2 G PREMIX 50 ML IV NR (12:30)
[2022-07-19 13:59] VITALS: BP 135/74
[2022-07-19] MEDS: HYDRALAZINE HCL 100MG TABLET PO SCH (14:55)
== END 2022-07-19 16:25 | disposition home health service (06) | DRG 73 ==
LOC: ER 10:25 → EDBEDREQ 14:32 → EDBEDREQTM 14:32 → EDBEDREQSVC 14:32 → EDBEDREQTM 17:36 → 7EST 17:37
PROVIDERS: ADMIT Internal Medicine Nephrology; ATTEND Internal Medicine Nephrology
DX: G90.8 Other disorders of autonomic nervous system (principal); G93.41 Metabolic encephalopathy; I16.0 Hypertensive urgency; R00.1 Bradycardia, unspecified; E78.5 Hyperlipidemia, unspecified; T44.7X5A Adverse effect of beta-adrenoreceptor antagonists, initial encounter; E87.6 Hypokalemia; F03.90 Unspecified dementia, unspecified severity, without behavioral disturbance, psychotic disturbance, mood disturbance, and anxiety; I25.10 Atherosclerotic heart disease of native coronary artery without angina pectoris; E78.00 Pure hypercholesterolemia, unspecified; Y92.89 Other specified places as the place of occurrence of the external cause
CPT/HCPCS: 36415; 70551; 71045; 80048; 80053; 80162; 81003; 83735; 83880; 84439; 84443; 84481; 84484; 85025; 93005; 93306; 93880; 93970; 99291; C1893; J0360; J3475

== ENCOUNTER → 2024-02-02 | Outpatient (CLI) | payer MEDICARE, MEDICAID ==
[~2024-02-02] MED LIST changes: -AMLO5TAB4 PO; -CLON-457 MT; -COR25 PO; +DICL100G58 TP; -FOLI0.8T42 MT; +IBUP-2030 MT; +LISI20TA31 PO; -LISI40TA13 MT; -OMEP20TA23 PO; -PRED10TA MT; +SERT-422 MT; +SIMV-43 MT; -SIMV10TA97 PO; +TAMS-11 MT; -VALA100044 MT
== END | disposition home or self-care (01) ==
LOC: MRI 14:52
PROVIDERS: ATTEND Internal Medicine Nephrology
DX: D35.02 Benign neoplasm of left adrenal gland (principal); E27.8 Other specified disorders of adrenal gland
CPT/HCPCS: 74181